=== PATIENT | male | born 1955 | race Caucasian/White ===

== ENCOUNTER → 2016-11-21 | Outpatient (CLI) | payer MEDICARE, OTHER ==
--- NOTE | ~2016-11-21 | CR63 ---
[facility] A Service of [facility] RADIOLOGY TEXT RESULTS PATIENT: MIQUEL CARR LOCATION: [facility] : 57 UNIT #: [id number] AGE: [address]: KACEY YEPEZ APRN SEX: M ORDER DR: [id number] [address] [id number] MR#: [id number] Acc #: [id number] NAME: MIQUEL CARR : 1955 SEX: M STUDY DATE/TIME: 11/21/2016 14:19 UNIT: [facility] ROOM: STUDY DESCRIPTION: CR Chest 2 View Attending Physician: Kacey Yepez Aprn Referring Physician: Kacey Yepez Aprn Ordering Physician: Kacey Yepez Aprn Primary Care Physician: Kacey Yepez Aprn MEDICAL IMAGING REPORT This report is preliminary unless electronic signature is present. EXAM Chest PA and lateral, 11/21 COMPARISON Examination is 08/25/2016 HISTORY SUPPLIED Right-sided chest pain for 2 weeks. FINDINGS PA and lateral views are obtained. The heart size is normal and the lungs are clear. CONCLUSION Negative chest. Dictated by... Stan Gilbert M.D. THIS IS AN ELECTRONICALLY VERIFIED REPORT Stan Gilbert M.D. at 11/22/2016 8:01 AM RICKEY/raissa TD: 11/21/2016 21:45 JOB #: [id number] MEDICAL IMAGING REPORT
== END | disposition home or self-care (01) ==
LOC: SRAD 14:15
DX: R07.9 Chest pain, unspecified (principal)
CPT/HCPCS: 71020